=== PATIENT | female | born 1960 | race Caucasian/White ===

== ENCOUNTER → 2018-07-25 11:54 | Outpatient (CLI) | payer BC, SELFPAY ==
--- NOTE | 2018-07-25 12:00 | RAD_ITS ---
STUDY: X-RAY - RIGHT CALCANEUS REASON FOR EXAM: Female, 58 years old. Right heel pain x 4 months. TECHNIQUE: 2 view(s) of the calcaneus were obtained. COMPARISON: None. FINDINGS: Normal density of the calcaneus. There is a plantar calcaneal spur. There is no demonstrated osseous structure lesion or fracture. The soft tissues are unremarkable. RAD/Calcaneus min 2 Views IMPRESSION: Plantar spur of the right calcaneus. Electronically Signed: Caden Lino MD at 19:38 EDT , Service support ,
== END ==
PROVIDERS: Family Provider Family Medicine; PCP Family Medicine; Referring Provider Family Medicine; Visit Provider Family Medicine
DX: M79.671 Pain in right foot (principal)
CPT/HCPCS: 73650

== ENCOUNTER → 2019-03-22 09:29 | Outpatient (CLI) | payer BC, SELFPAY ==
[2019-03-22 10:02] LABS: Hematocrit 44.9 % (37-47); Hemoglobin 15.4 g/dl (12.0-15.0); Mean Corp Hgb Conc 34.3 g/gl (32-36); Mean Corpuscular Hgb 29.7 pg (27.0-32.0); Mean Corpuscular Volume 86.5 fL (81-99); Platelet Count 243 K/mm3 (150-450); RBC Distribution Width CV 13.3 % (11.6-14.6); RBC Distribution Width SD 41.6 fl (35.1-43.9); Red Blood Count 5.19 M/mm3 (4.2-5.4); Scan Indicated on CBC? Y/N NO; White Blood Count 7.1 K/mm3 (4.4-11.0)
[2019-03-22 10:24] LABS: AST(SGOT) 17 U/L (15-37); Alanine Aminotransfer ALT/SGPT 25 U/L (13-56); Albumin, Serum 4.1 g/dL (3.2-5.0); Alkaline Phosphatase 114 U/L (45-117); Anion Gap 4 (5-15); BUN 13 mg/dL (7-18); BUN/Creat Ratio 16.8 RATIO (10-20); Calcium,Total 9.2 mg/dL (8.5-10.1); Chloride 106 mmol/L (98-107); Cholesterol 303 mg/dL (200); Creatinine, Serum 0.77 mg/dL (0.55-1.02); EST Glomerular Filtration Rate 81 mL/min (>60); Est Glom Filt Rate - Afr Amer 98 mL/min (>60); Ferritin 106 ng/mL (8-252); Glucose 86 mg/dL (74-106); High Density Lipoprotein 46 mg/dL; Potassium 3.9 mmol/L (3.5-5.1); Protein, Total 8.1 g/dL (6.4-8.2); Sodium Level 138 mmol/L (136-145); Triglycerides 255 mg/dL; Very Low Density Lipoprotein 51 mg/dL (5-40)
[2019-03-22 10:37] LABS: Vitamin D,25 Hydroxy 36.6 ng/mL (29.95-100.01)
== END ==
PROVIDERS: Family Provider Family Medicine; PCP Family Medicine; Referring Provider Family Medicine; Visit Provider Family Medicine
DX: E78.5 Hyperlipidemia, unspecified (principal); G25.81 Restless legs syndrome; E55.9 Vitamin D deficiency, unspecified
CPT/HCPCS: 36415; 80053; 80061; 82306; 82728; 85027

== ENCOUNTER → 2019-06-07 16:26 | Outpatient (CLI) | payer BC, SELFPAY ==
--- NOTE | 2019-06-07 16:30 | RAD_ITS ---
STUDY: X-RAY - LEFT KNEE REASON FOR EXAM: Female, 59 years old. Twisting injury. Knee pain. Patient fell off. TECHNIQUE: 4 view(s) of the knee. COMPARISON: None. FINDINGS: Normal visualized distal femur. Normal visualized proximal tibia and fibula. There is arthrosis of the proximal tibiofibular articulation. There is no acute fracture, dislocation or destructive osseous pathology. There is mild degenerative arthrosis of the medial femorotibial compartment. There is mild degenerative arthrosis of the lateral femorotibial compartment. There is moderate degenerative arthrosis of the patellofemoral articulation. There is no demonstrated joint effusion. The soft tissue structures are unremarkable. RAD/Knee 4 or More Views IMPRESSION: Degenerative arthrosis. Electronically Signed: Eric Bgeum DO at 19:16 EDT Tel [phone], Service support ,
== END ==
PROVIDERS: Family Provider Family Medicine; PCP Family Medicine; Referring Provider Family Medicine; Visit Provider Family Medicine
DX: M25.561 Pain in right knee (principal)
CPT/HCPCS: 73564

== ENCOUNTER → 2019-06-20 07:15 | Outpatient (CLI) | payer BC, SELFPAY ==
--- NOTE | 2019-06-20 07:22 | MRI_ITS ---
STUDY: MRI LEFT KNEE REASON FOR EXAM: Left knee pain, bruising and swelling status post twisting injury 2 weeks ago. 2 prior knee arthroscopies. TECHNIQUE: Standardized fat and water weighted pulse sequences were obtained in all 3 orthogonal planes. COMPARISON: Radiographs 06/07/2019. FINDINGS: There is minimal intrasubstance myxoid degeneration of the posterior horn of the medial meniscus without discrete medial meniscal tear. There is arthrosis of the medial femorotibial compartment with marginal osteophytes, chondral thinning of the medial femoral condyle (T2 sagittal images 7-9) and small subchondral lesions of the posterior aspect medial femoral condyle (proton density coronal image 13). There is mild subchondral bone edema of the medial femoral condyle (T2 coronal images 13-15), a stress phenomenon. Normal medial collateral ligamentous complex (MCL). Normal distal semimembranosus, gracilis and semitendinosus tendons. Normal lateral meniscus. There is mild arthrosis of the lateral femorotibial compartment with small marginal osteophytes and mild irregularity of articular cartilage of the lateral femoral condyle (T2 sagittal image 17). Normal lateral femoral condyle and tibial plateau. Normal proximal tibiofibular articulation. Normal lateral collateral (fibular) ligament. Normal popliteus tendon. Normal biceps femoris tendon. Normal anterior cruciate ligament (T2 coronal images 13-15). Normal posterior cruciate ligament (PCL). There is lateral tilt of the patella without patellar subluxation (T2 axial image 13). There is arthrosis of the patellofemoral compartment with small marginal osteophytes, chondral thinning (T2 sagittal image 18) and very mild subchondral cystic change of the lateral femoral trochlea. Normal medial and lateral patellar retinaculum. Normal visualized quadriceps tendon. Normal patellar tendon. There is mild edema in Hoffa's fat pad inferior to the lateral aspect of the patellofemoral articulation (T2 sagittal images 18, 19). There is a small joint effusion. There is a small popliteal cyst (T2 sagittal images 6, 7). The otherwise visualized osseous structures are unremarkable. MRI/Lower Ext Joint Only (Routine) IMPRESSION: Tricompartmental arthrosis. Mild subchondral bone edema of the medial femoral condyle, a stress phenomenon. Lateral tilt of the patella with mild edema in Hoffa's fat pad inferior to the lateral aspect of the patellofemoral articulation, suggestive of patellofemoral friction syndrome. Small joint effusion. Small popliteal cyst. Electronically Signed: Christopher Perkins MD at 9:29 EDT Tel , Service support ,
== END ==
LOC: MRI 07:17
PROVIDERS: Family Provider Family Medicine; PCP Family Medicine; Referring Provider Family Medicine; Visit Provider Family Medicine
DX: M25.562 Pain in left knee (principal)
CPT/HCPCS: 73721

== ENCOUNTER → 2020-02-12 17:11 | Outpatient (CLI) | payer BC, SELFPAY ==
--- NOTE | 2020-02-12 17:15 | RAD_ITS ---
STUDY: X-RAY CHEST REASON FOR EXAM: Female, 60 years old. fever, had testing today for COVID TECHNIQUE: Frontal and lateral views of the chest. COMPARISON: None. FINDINGS: The lungs are clear and expanded. There is no demonstrated pleural abnormality. Normal size heart. Normal mediastinum and darrion. Normal visualized pulmonary arteries. Normal visualized aortic arch and descending thoracic aorta. Normal visualized thoracic spine. Normal visualized ribs, clavicles, and shoulders. There is no demonstrated abnormality of the visualized soft tissue structures of the upper abdomen. RAD/Chest PA and Lateral IMPRESSION: Normal x-ray examination of the chest. Electronically Signed: Ruiz Woods MD at 23:32 EDT , Service support ,
== END ==
PROVIDERS: PCP Family Medicine; Referring Provider Family Medicine; Visit Provider Family Medicine
DX: U07.1 COVID-19 (principal)
CPT/HCPCS: 71046

== ENCOUNTER → 2020-10-29 15:50 | Outpatient (CLI) | payer BC, SELFPAY ==
--- NOTE | 2020-10-29 15:55 | RAD_ITS ---
STUDY: X-RAY - PARANASAL SINUSES REASON FOR EXAM: Female, 60 years old. sinus pressure by nose, hx of fx nose years ago TECHNIQUE: 3 view(s) of the paranasal sinuses were obtained. COMPARISON: None. FINDINGS: Significant mucosal thickening in the maxillary sinuses bilaterally consistent with sinusitis. Normal visualized facial bones. The soft tissue structures are unremarkable. RAD/Sinuses min 3 Views IMPRESSION: Bilateral maxillary sinusitis Electronically Signed: Tony Mcpherson MD at 16:44 EST Tel , Service support ,
== END ==
LOC: MTRAD 15:52
PROVIDERS: PCP Family Medicine; Referring Provider Family Medicine; Visit Provider Family Medicine
DX: J34.89 Other specified disorders of nose and nasal sinuses (principal)
CPT/HCPCS: 70220

== ENCOUNTER → 2021-03-12 | Outpatient (CLI) | payer BC, SELFPAY | END | disposition home or self-care (01) | LOC: LABSPEC 12:20 | PROVIDERS: PCP Family Medicine; Referring Provider Family Medicine; Visit Provider Family Medicine | DX: R30.0 Dysuria (principal) | CPT/HCPCS: 87077; 87086; 87088; 87186 ==

== ENCOUNTER → 2021-04-22 15:57 | Outpatient (CLI) | payer BC, SELFPAY ==
--- NOTE | 2021-04-22 16:02 | RAD_ITS ---
STUDY: X-RAY - RIGHT HAND, ATTENTION FIFTH FINGER REASON FOR EXAM: Female, 61 years old. Dislocation finger with bruising at the base of the fifth digit. TECHNIQUE: 3 view(s) of the finger were obtained. COMPARISON: Right hand views dated 01/16/2015. FINDINGS: Oblique minimally displaced fracture of the head of the fifth metacarpal with intra-articular extension. Normal metacarpophalangeal joint. Normal proximal phalanx. Normal middle phalanx. Normal distal phalanx. Normal proximal interphalangeal joint. Normal distal interphalangeal joint. RAD/Finger(s) Min 2 Views IMPRESSION: Minimally displaced fracture of the head of the fifth metacarpal with intra-articular extension. Electronically Signed: Eugenio Whitman MD at 12:08 EDT , Service support ,
--- NOTE | 2021-04-22 16:02 | RAD_ITS ---
STUDY: X-RAY - LEFT SHOULDER REASON FOR EXAM: Female, 61 years old. Pain. TECHNIQUE: 4 view(s) of the shoulder. COMPARISON: None. FINDINGS: Generalized osteopenia. Mild arthrosis of the glenohumeral and acromioclavicular joints. Mild sclerosis of the greater tuberosity of the humeral head. The soft tissue structures are unremarkable. Normal visualized pulmonary apex. RAD/Shoulder min 2 Views IMPRESSION: Mild osteoarthritic changes as described. No acute abnormality, erosive change or periostitis. Electronically Signed: Eugenio Whitman MD at 12:08 EDT , Service support ,
== END ==
PROVIDERS: PCP Family Medicine; Referring Provider Family Medicine; Visit Provider Family Medicine
DX: S63.259A Unspecified dislocation of unspecified finger, initial encounter (principal); M25.512 Pain in left shoulder; X58.XXXA Exposure to other specified factors, initial encounter; Y93.9 Activity, unspecified; Y92.9 Unspecified place or not applicable; Y99.9 Unspecified external cause status
CPT/HCPCS: 73030; 73140